=== PATIENT | male | born 1980 ===

== ENCOUNTER 2018-11-16 11:02 | Inpatient (IN) ==
[2018-11-16] MEDS ORDERED: LORazepam 1 MG TAB SL STA (11:51)
[2018-11-16 12:26] LABS: Basophils # (auto) 0.02 K/uL (0-0.2); Basophils % (auto) 0.2 %; Eosinophils # (auto) 0.35 K/uL (0-0.5); Eosinophils % (auto) 2.8 %; Hematocrit (blood only) 45.3 % (42-52); Hemoglobin 15.1 g/dL (14.0-18.0); Immature Granulocytes # (auto) 0.02 K/uL (0.00-0.02); Immature Granulocytes % (auto) 0.2 %; Lymphocytes # (auto) 1.53 K/uL (1.2-3.4); Lymphocytes % (auto) 12.3 %; Mean Corpuscular Hemoglobin 26.3 pg (25-34); Mean Corpuscular Hgb Conc 33.3 g/dL (32-36); Mean Corpuscular Volume 78.8 fL (80-100); Mean Platelet Volume 10.1 fL (7.4-10.4); Monocytes # (auto) 0.69 K/uL (0.11-0.59); Monocytes % (auto) 5.6 %; Neutrophils # (auto) 9.81 K/uL (1.4-6.5); Neutrophils % (auto) 78.9 %; Platelet Count 206 K/uL (130-400); RDW Coefficient of Variation 15.3 % (11.5-14.5); Red Blood Count 5.75 M/uL (4.7-6.1); White Blood Count 12.42 K/uL (4.8-10.8)
[2018-11-16 12:45] LABS: Acetaminophen < 2 ug/ml (10-30); Albumin Level 3.4 gm/dl (3.4-5.0); BUN Creatinine Ratio 10.4 (10-20); Calcium 8.4 mg/dl (8.5-10.1); Creatinine Clr Calc Pharmacy 117.2 ml/min; Est GFR (African American) 123.5; Est GFR (Non-African American) 106.5
[2018-11-16 12:46] LABS: Salicylate < 1.7 mg/dl (2.8-20)
[2018-11-16 12:49] LABS: Appearance Urine Clear (Clear); Bilirubin Urine Negative (Negative); Blood Urine Negative (Negative); Color Urine Yellow; Glucose Urine UA Negative (Negative); Ketones Urine Negative (Negative); Leukocyte Esterase Urine Negative (Negative); Nitrite Urine Negative (Negative); Protein Urine Negative (Negative); Specific Gravity Urine 1.006 (1.000-1.030); Urobilinogen Urine Negative (Negative); pH Urine >= 9.0 (4.5-7.5)
[2018-11-16 12:56] LABS: Bilirubin,Total 0.3 mg/dl (0.2-1); Globulin 3.3 gm/dl (2.5-4.0); Thyroid Stimulating Hormone 1.11 uIu/ml (0.300-4.500); Total Protein 6.7 gm/dl (6.4-8.2)
[2018-11-16 13:20] LABS: Amphetamines+Metham, Urine Neg (Neg); Barbiturates, Urine Neg (Neg); Benzodiazepine, Urine Pos (Neg); Cocaine, Urine Neg (Neg); MDMA (Ecstacy), Urine Neg (Neg); Methadone, Urine Neg (Neg); Opiate, Urine Neg (Neg); Phencyclidine, Urine Neg (Neg)
[2018-11-16] MEDS ORDERED: GABAPENTIN 600 MG TAB PO STA (14:56)
[2018-11-16] MEDS ORDERED: BUPRENORPHINE HCL 8 MG SUBL SL STA (14:57)
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
[2018-11-16] MEDS ORDERED: ALUMINUM/MAGNESIUM SUSP 30 ML UDC PO PRN (17:18)
[2018-11-16] MEDS ORDERED: SODIUM CHLORIDE 0.65% NA SOLN 45 ML (OCEAN) PRN (17:18)
[2018-11-16] MEDS ORDERED: ACETAMINOPHEN 325 MG TAB PO PRN (17:18)
[2018-11-16] MEDS ORDERED: BISMUTH SUBSALICYLATE PER ML OMNICELL CHARGE PO PRN (17:18)
[2018-11-16] MEDS ORDERED: MAGNESIUM HYDROXIDE SUSP 30 ML UDC PO PRN (17:18)
[2018-11-16] MEDS ORDERED: BUPRENORPHINE HCL 8 MG SUBL SL PRN (18:28)
[2018-11-16] MEDS ORDERED: cloNIDine HCl 0.1 MG TAB PO PRN (18:35)
[2018-11-16] MEDS ORDERED: DRONABINOL 2.5 MG CAP PO SCH ×2 (21:00)
[2018-11-16] MEDS ORDERED: BUPRENORPHINE HCL 8 MG SUBL SL SCH (21:00)
[2018-11-16] MEDS ORDERED: cloNIDine HCl 0.1 MG TAB PO SCH (21:00)
[2018-11-16] MEDS ORDERED: GABAPENTIN 800 MG TAB PO SCH (21:00)
[2018-11-16] MEDS: MELATONIN SCH (21:21)
[2018-11-16] MEDS: DRONABINOL 2.5 MG CAP PO SCH (21:23)
[2018-11-16] MEDS: BUPRENORPHINE HCL 8 MG SUBL SL SCH (21:23)
[2018-11-16] MEDS: PRIMIDONE 50 MG TAB PO SCH (21:23)
[2018-11-16] MEDS: DICLOFENAC SOD 1% GEL 100 GM TUBE EXT SCH (21:24)
[2018-11-16] MEDS: AMLODIPINE BESYLATE 5 MG TAB PO SCH (21:24)
[2018-11-16] MEDS: GABAPENTIN 400 MG CAP PO SCH (21:25)
[2018-11-16] MEDS: GABAPENTIN 600 MG TAB PO SCH (21:26)
[2018-11-16] MEDS: IBUPROFEN 800 MG TAB PO PRN (21:56)
[2018-11-17] MEDS: GABAPENTIN 600 MG TAB PO SCH ×3 (08:23→20:40)
[2018-11-17] MEDS: GABAPENTIN 400 MG CAP PO SCH ×3 (08:23→20:40)
[2018-11-17] MEDS: DULOXETINE HCL 20 MG CAP PO SCH (08:23)
[2018-11-17] MEDS: DRONABINOL 2.5 MG CAP PO SCH ×2 (08:34→20:39)
[2018-11-17] MEDS: BUPRENORPHINE HCL 8 MG SUBL SL SCH ×3 (08:35→20:43)
[2018-11-17] MEDS: IBUPROFEN 800 MG TAB PO PRN ×3 (08:44→22:56)
[2018-11-17] MEDS ORDERED: AMLODIPINE BESYLATE 5 MG TAB PO SCH (09:00)
[2018-11-17] MEDS: DICLOFENAC SOD 1% GEL 100 GM TUBE EXT SCH ×5 (11:27→22:44)
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
[2018-11-17] MEDS ORDERED: cloNIDine HCl 0.1 MG TAB PO PRN (15:14)
[2018-11-17] MEDS: QUETIAPINE FUMARATE 25 MG TABLET PO PRN ×2 (15:19→19:37)
[2018-11-17] MEDS: AMLODIPINE BESYLATE 5 MG TAB PO SCH (20:42)
[2018-11-17] MEDS: PRIMIDONE 50 MG TAB PO SCH (20:43)
[2018-11-17] MEDS: PRAZOSIN HCL 1 MG CAP PO SCH (20:45)
[2018-11-17] MEDS: MELATONIN SCH (22:42)
[2018-11-18] MEDS: GABAPENTIN 600 MG TAB PO SCH ×3 (08:14→21:19)
[2018-11-18] MEDS: GABAPENTIN 400 MG CAP PO SCH ×3 (08:14→21:19)
[2018-11-18] MEDS: DULOXETINE HCL 20 MG CAP PO SCH (08:14)
[2018-11-18] MEDS: DRONABINOL 2.5 MG CAP PO SCH ×2 (08:15→21:48)
[2018-11-18] MEDS: BUPRENORPHINE HCL 8 MG SUBL SL SCH ×3 (08:15→21:48)
[2018-11-18] MEDS: DICLOFENAC SOD 1% GEL 100 GM TUBE EXT SCH ×4 (08:16→21:18)
[2018-11-18] MEDS: IBUPROFEN 800 MG TAB PO PRN ×2 (08:17→21:47)
[2018-11-18] MEDS ORDERED: clonazePAM 1 MG TAB PO STA (15:19)
[2018-11-18] MEDS ORDERED: ALPRAZolam 0.5 MG TABLET PO PRN (15:23)
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
[2018-11-18] MEDS: MELATONIN SCH (21:18)
[2018-11-18] MEDS: PRIMIDONE 50 MG TAB PO SCH (21:19)
[2018-11-18] MEDS: AMLODIPINE BESYLATE 5 MG TAB PO SCH (21:19)
[2018-11-18] MEDS: PRAZOSIN HCL 1 MG CAP PO SCH (21:19)
[2018-11-18] MEDS: clonazePAM 1 MG TAB PO PRN (21:47)
[2018-11-19 07:49] LABS: 7-Aminoclonaz, Confirm 163 NG/ML (CUTOFF=25); Hydro-Alp Ur, GC/MS 162 NG/ML (CUTOFF=25); Hydroxyethylflurazepam, Conf NEGATIVE NG/ML (CUTOFF=50); Hydroxytriazolam NEGATIVE NG/ML (CUTOFF=50); Lorazepam, Ur GC/MS NEGATIVE NG/ML (CUTOFF=50); Marijuana Quant, GCMS Urine 166 NG/ML (CUTOFF=5); Nordiazepam, Confirm NEGATIVE NG/ML (CUTOFF=50); Oxazepam Ur, GC/MS NEGATIVE NG/ML (CUTOFF=50); Temazepam, Confirm NEGATIVE NG/ML (CUTOFF=50)
[2018-11-19] MEDS: clonazePAM 1 MG TAB PO PRN ×3 (08:39→21:16)
[2018-11-19] MEDS: IBUPROFEN 800 MG TAB PO PRN ×3 (08:39→21:08)
[2018-11-19] MEDS: lamoTRIgine 25 MG TAB PO SCH (08:40)
[2018-11-19] MEDS: DRONABINOL 2.5 MG CAP PO SCH ×2 (08:40→21:06)
[2018-11-19] MEDS: DULOXETINE HCL 20 MG CAP PO SCH (08:40)
[2018-11-19] MEDS: BUPRENORPHINE HCL 8 MG SUBL SL SCH ×3 (08:41→21:07)
[2018-11-19] MEDS: DICLOFENAC SOD 1% GEL 100 GM TUBE EXT SCH ×4 (08:41→22:17)
[2018-11-19] MEDS: GABAPENTIN 600 MG TAB PO SCH ×3 (08:41→21:07)
[2018-11-19] MEDS: GABAPENTIN 400 MG CAP PO SCH ×3 (08:41→21:07)
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
[2018-11-19] MEDS: PRIMIDONE 50 MG TAB PO SCH (21:07)
[2018-11-19] MEDS: AMLODIPINE BESYLATE 5 MG TAB PO SCH (21:07)
[2018-11-19] MEDS: MELATONIN SCH (22:16)
[2018-11-19] MEDS: PRAZOSIN HCL 1 MG CAP PO SCH (22:16)
[2018-11-20] MEDS: DICLOFENAC SOD 1% GEL 100 GM TUBE EXT SCH ×4 (08:11→21:40)
[2018-11-20] MEDS: GABAPENTIN 400 MG CAP PO SCH ×3 (08:12→21:33)
[2018-11-20] MEDS: DULOXETINE HCL 20 MG CAP PO SCH (08:12)
[2018-11-20] MEDS: GABAPENTIN 600 MG TAB PO SCH ×3 (08:12→21:34)
[2018-11-20] MEDS: BUPRENORPHINE HCL 8 MG SUBL SL SCH ×3 (08:12→21:34)
[2018-11-20] MEDS: lamoTRIgine 25 MG TAB PO SCH (08:13)
[2018-11-20] MEDS: clonazePAM 1 MG TAB PO PRN ×3 (08:13→21:36)
[2018-11-20] MEDS: DRONABINOL 2.5 MG CAP PO SCH ×2 (08:13→21:33)
[2018-11-20] MEDS: IBUPROFEN 800 MG TAB PO PRN ×3 (08:13→21:35)
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
[2018-11-20] MEDS: PRIMIDONE 50 MG TAB PO SCH (21:34)
[2018-11-20] MEDS: AMLODIPINE BESYLATE 5 MG TAB PO SCH (21:34)
[2018-11-20] MEDS: PRAZOSIN HCL 1 MG CAP PO SCH (22:47)
[2018-11-20] MEDS: MELATONIN SCH (22:47)
[2018-11-21] MEDS: DULOXETINE HCL 20 MG CAP PO SCH (08:11)
[2018-11-21] MEDS: GABAPENTIN 600 MG TAB PO SCH ×3 (08:12→20:42)
[2018-11-21] MEDS: GABAPENTIN 400 MG CAP PO SCH ×3 (08:12→20:42)
[2018-11-21] MEDS: lamoTRIgine 25 MG TAB PO SCH (08:12)
[2018-11-21] MEDS: IBUPROFEN 800 MG TAB PO PRN ×3 (08:17→20:40)
[2018-11-21] MEDS: clonazePAM 1 MG TAB PO PRN ×3 (08:17→20:47)
[2018-11-21] MEDS: BUPRENORPHINE HCL 8 MG SUBL SL SCH ×3 (08:46→20:40)
[2018-11-21] MEDS: DRONABINOL 2.5 MG CAP PO SCH ×2 (08:47→20:41)
[2018-11-21] MEDS: DICLOFENAC SOD 1% GEL 100 GM TUBE EXT SCH ×4 (08:54→20:45)
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
[2018-11-21] MEDS: AMLODIPINE BESYLATE 5 MG TAB PO SCH (20:43)
[2018-11-21] MEDS: PRIMIDONE 50 MG TAB PO SCH (20:44)
[2018-11-21] MEDS: PRAZOSIN HCL 1 MG CAP PO SCH (20:44)
[2018-11-21] MEDS: MELATONIN SCH (22:01)
[2018-11-22] MEDS: DRONABINOL 2.5 MG CAP PO SCH (08:03)
[2018-11-22] MEDS: lamoTRIgine 25 MG TAB PO SCH (08:03)
[2018-11-22] MEDS: DULOXETINE HCL 20 MG CAP PO SCH (08:03)
[2018-11-22] MEDS: GABAPENTIN 400 MG CAP PO SCH (08:03)
[2018-11-22] MEDS: GABAPENTIN 600 MG TAB PO SCH (08:03)
[2018-11-22] MEDS: BUPRENORPHINE HCL 8 MG SUBL SL SCH (08:03)
[2018-11-22] MEDS: DICLOFENAC SOD 1% GEL 100 GM TUBE EXT SCH (08:04)
[2018-11-22] MEDS: clonazePAM 1 MG TAB PO PRN (08:07)
[2018-11-22] MEDS: IBUPROFEN 800 MG TAB PO PRN (08:18)
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
== END 2018-11-22 11:59 | disposition home or self-care (01) | DRG 885 ==
LOC: ED 11:02 → 3S 17:19